=== PATIENT | male | born 2000 | race Caucasian/White ===

== ENCOUNTER 2019-01-30 05:12 | Observation (INO) ==
[2019-01-30] MEDS ORDERED: 0.9 % Sodium Chloride 1,000 ML IVC ONE ×2 (05:42→07:18)
[2019-01-30 05:49] LABS: Mean Platelet Volume 10.4 fL (9.4-12.4)
[2019-01-30 05:50] LABS: Hematocrit 43.8 % (37.5-50.1); Hemoglobin 15.8 g/dL (12.9-16.9); Mean Corpuscular HGB Conc 36.1 g/dL (31.6-35.5); Mean Corpuscular Hemoglobin 30.6 pg (28.0-33.3); Mean Corpuscular Volume 84.7 fL (83.0-100.0); Platelet Count 349 K/mcL (140-400); Red Blood Count 5.17 M/mcL (4.19-5.50); Red Cell Distribution Width 11.9 % (11.5-14.5)
[2019-01-30] MEDS ORDERED: Ondansetron 4 MG/2 ML VIAL IVP ONE (05:59)
[2019-01-30] MEDS ORDERED: Ondansetron 4 MG/2 ML VIAL ONE (06:01)
[2019-01-30 06:05] LABS: Alanine Aminotransferase 26 Units/L (7-52); Albumin 5.3 g/dL (3.5-5.7); Albumin/Globulin Ratio 2.1 (1.1-2.2); Alkaline Phosphatase 117 Units/L (34-104); Aspartate Amino Transferase 28 Units/L (13-39); BUN/Creatinine Ratio 8 (6-26); Bilirubin,Total 0.3 mg/dL (0.3-1.0); Blood Urea Nitrogen 8 mg/dL (6-20); Calcium 9.9 mg/dL (8.6-10.3); Carbon Dioxide 18 mEq/L (23-29); Chloride 106 mEq/L (98-107); Globulin 2.5 g/dL (2.4-3.5); Glucose 266 mg/dL (70-105); Magnesium 2.3 mg/dL (1.6-2.6); Osmolality,Calculated 292 (280-300); Potassium 3.5 mEq/L (3.5-5.1); Sodium 137 mEq/L (136-145); Total Protein 7.8 g/dL (6.4-8.9); eGFR For Non-African Americans > 60 (> 60)
[2019-01-30 06:15] LABS: Lymphocytes # 4.3 K/mcL (0.6-4.6); Monocytes # 1.1 K/mcL (0.0-1.3); Neutrophils # 30.2 K/mcL (1.6-8.9); Platelet Estimate Normal (Normal)
--- NOTE | 2019-01-30 06:16 | Emergency Department Note ---
Disposition Clinical Impression: Status epilepticus Disposition: Still a Patient Condition: Fair Referrals: NONE,PCP [Primary Care Provider] - Forms: ED Satisfaction Letter Seizure HPI - General Chief Complaint: ED Seizure Stated Complaint: seizures Time Seen by Provider: 01/30/19 05:15 Source: patient Mode of arrival: ambulatory Limitations: altered mental status Nursing Notes Reviewed: Yes Vital Signs Reviewed: Yes - History of Present Illness HPI Narrative: 18 yo male with PMHx of seizures without a known cause presents to the ED with family after several seizures tonight. Mother states he had 4 seizures between 230 and 430 this morning without complete return to consciousness. She describes these episodes as total body shaking with stiffening of the limbs in between the shaking episodes. He also had an episode of urinary incontinence as well as one episode of vomiting. She was worried as he did not fully wake up after the seizures and eventually called 911. The patient has not had any seizure like activity since 0430 this morning. He has had 3 previous episodes of seizures that had all self resolved. The patient has not had a seizure in over a year and does not take daily medication. He did not have any abortive medication today to stop the seizures. He is currently post-ictal. Pt is able to answer some questions and states he did not take any drugs tonight and has no history of drug use. He has not recently been ill and is not under excess stress at this time. - Related Data Allergies Allergy/AdvReac Type Severity Reaction Status Date / Time No Known Allergies Allergy Verified 01/30/19 05:13 All systems ED: reviewed and negative except as stated. Review of Systems: As Per HPI Constitutional: Denies: fever, chills, weakness Cardiovascular: Denies: chest pain, palpitations, dyspnea on exertion Respiratory: Denies: cough, dyspnea, wheezes Gastrointestinal: Denies: abdominal pain, nausea, vomiting Musculoskeletal: Denies: back pain, neck pain Integumentary: Denies: rash Neurological: Reports: other (seizure). Denies: headache Endocrine: Denies: fatigue Past Medical History - Past Medical History Attestation: Yes The following information was validated with the patient. Source: patient, obtained from family Medical history: Reports: seizures Psychiatric history: Reports: no psych history - Social History Smoking Status: Current every day smoker Smokeless Tobacco Status: No Alcohol use: Reports: none Drug use: Reports: none Physical Exam - General Limitations: altered mental status General appearance: alert, in no apparent distress - Head Head exam: atraumatic, normocephalic - Eye Eye exam: Present: normal appearance, PERRL, EOMI - Chest Chest inspection: Present: normal inspection. Absent: tenderness - Respiratory Respiratory exam: Present: normal lung sounds bilaterally - Cardiovascular Cardiovascular exam: Present: regular rate, normal rhythm - Abdominal Exam Abdominal exam: Present: soft, Non-Tender. Absent: distention, guarding, rebound, rigidity - Extremities Exam Extremities exam: Present: normal inspection. Absent: tenderness, pedal edema - Neurological Exam Neurological exam: Present: alert, other (pt currently somnolent but easily aroused and able to answer questions. Moves all 4 extremities without difficulty. Speech is slightly slurred.). Absent: motor sensory deficit - Psychiatric Psychiatric exam: Present: flat affect - Skin Skin exam: Present: warm, dry, intact Course Vital Signs Temperature 97.8 F 01/30/19 05:17 Pulse Rate 102 01/30/19 05:17 Respiratory Rate 18 01/30/19 05:17 Blood Pressure 140/114 01/30/19 05:17 O2 Sat by Pulse Oximetry 100 01/30/19 05:17 Temperature 97.8 F 01/30/19 05:17 Pulse Rate 79 01/30/19 06:12 Respiratory Rate 18 01/30/19 06:12 Blood Pressure 120/87 01/30/19 06:12 O2 Sat by Pulse Oximetry 97 01/30/19 06:12 Oxygen Delivery Oxygen Delivery Room Air Seizure - MDM Narrative Medical decision making narrative: Patient presents after multiple [id number] seizures concerning for status epilepticus. We will give him medication at this time to prevent future seizures and obtain an EKG, head CT, urinalysis, lab work to look for electrolyte abnormalities and infection. - Medical Records Medical records reviewed: Yes I reviewed the patient's medical records. - Lab Data Lab results reviewed: Yes I reviewed the patient's lab results. Result diagrams: 01/30/19 05:37 01/30/19 05:37 Lab Results 01/30/19 01/30/19 01/30/19 Range/Units 05:37 05:37 06:08 WBC 35.9 H* (4.3-11.1) K/mcL RBC 5.17 (4.19-5.50) M/mcL Hgb 15.8 (12.9-16.9) g/dL Hct 43.8 (37.5-50.1) % MCV 84.7 (83.0-100.0) fL MCH 30.6 (28.0-33.3) pg MCHC 36.1 H (31.6-35.5) g/dL RDW 11.9 (11.5-14.5) % Plt Count 349 (140-400) K/mcL MPV 10.4 (9.4-12.4) fL Seg Neutrophils % 74.0 % Band Neutrophils % 10.0 H (0-4) % Lymphocytes % 12.0 % Monocytes % 3.0 % Metamyelocytes % 1.0 H (0) % Neutrophils # 30.2 H (1.6-8.9) K/mcL Lymphocytes # 4.3 (0.6-4.6) K/mcL Monocytes # 1.1 (0.0-1.3) K/mcL Platelet Estimate Normal (Normal) Sodium 137 (136-145) mEq/L Potassium 3.5 (3.5-5.1) mEq/L Chloride 106 (98-107) mEq/L Carbon Dioxide 18 L (23-29) mEq/L BUN 8 (6-20) mg/dL Creatinine 1.01 (0.70-1.30) mg/dL Est GFR ( Amer) > 60 (> 60) Est GFR (Non-Af Amer) > 60 (> 60) BUN/Creatinine Ratio 8 (6-26) Glucose 266 H (70-105) mg/dL Calculated Osmolality 292 (280-300) Lactic Acid 2.7 H (0.5-2.2) mmol/L Calcium 9.9 (8.6-10.3) mg/dL Magnesium 2.3 (1.6-2.6) mg/dL Total Bilirubin 0.3 (0.3-1.0) mg/dL AST 28 (13-39) Units/L ALT 26 (7-52) Units/L Alkaline Phosphatase 117 H (34-104) Units/L Troponin I (< 0.04) ng/mL Serum Total Protein 7.8 (6.4-8.9) g/dL Albumin 5.3 (3.5-5.7) g/dL Globulin 2.5 (2.4-3.5) g/dL Albumin/Globulin Ratio 2.1 (1.1-2.2) Urine Color (Yellow) Urine Clarity (Clear) Urine pH (5.0-8.0) pH Units Ur Specific [place] (1.010-1.025) Urine Protein (Neg-Trace) mg/dL Urine Glucose (UA) (Normal) mg/dL Urine Ketones (Negative) mg/dL Urine Blood (Negative) Urine Nitrite (Negative) Urine Bilirubin (Negative) Urine Urobilinogen (Normal) mg/dL Ur Leukocyte Esterase (Negative) Urine Microscopic RBC (0-3) per hpf Urine Microscopic WBC (0-3) per hpf Ur Squamous Epith Cells (None-Few) per lpf Urine Bacteria (None-Few) per hpf Hyaline Casts (None-Few) per lpf Urine Opiates Screen (Ehkujd=810) ng/mL Ur Barbiturates Screen (Cfuhba=097) ng/mL Ur Phencyclidine Scrn (Cutoff=25) ng/mL Ur Amphetamines Screen (Tibfzi=6776) ng/mL U Benzodiazepines Scrn (Tcgkop=934) ng/mL Urine Cocaine Screen (Cutoff= 300) ng/mL U Marijuana (THC) Screen (Cutoff = 50) ng/mL Ur Drug Screen Interp 01/30/19 01/30/19 01/30/19 Range/Units 06:08 06:59 06:59 WBC (4.3-11.1) K/mcL RBC (4.19-5.50) M/mcL Hgb (12.9-16.9) g/dL Hct (37.5-50.1) % MCV (83.0-100.0) fL MCH (28.0-33.3) pg MCHC (31.6-35.5) g/dL RDW (11.5-14.5) % Plt Count (140-400) K/mcL MPV (9.4-12.4) fL Seg Neutrophils % % Band Neutrophils % (0-4) % Lymphocytes % % Monocytes % % Metamyelocytes % (0) % Neutrophils # (1.6-8.9) K/mcL Lymphocytes # (0.6-4.6) K/mcL Monocytes # (0.0-1.3) K/mcL Platelet Estimate (Normal) Sodium (136-145) mEq/L Potassium (3.5-5.1) mEq/L Chloride (98-107) mEq/L Carbon Dioxide (23-29) mEq/L BUN (6-20) mg/dL Creatinine (0.70-1.30) mg/dL Est GFR ( Amer) (> 60) Est GFR (Non-Af Amer) (> 60) BUN/Creatinine Ratio (6-26) Glucose (70-105) mg/dL Calculated Osmolality (280-300) Lactic Acid (0.5-2.2) mmol/L Calcium (8.6-10.3) mg/dL Magnesium (1.6-2.6) mg/dL Total Bilirubin (0.3-1.0) mg/dL AST (13-39) Units/L ALT (7-52) Units/L Alkaline Phosphatase (34-104) Units/L Troponin I < 0.03 (< 0.04) ng/mL Serum Total Protein (6.4-8.9) g/dL Albumin (3.5-5.7) g/dL Globulin (2.4-3.5) g/dL Albumin/Globulin Ratio (1.1-2.2) Urine Color Yellow (Yellow) Urine Clarity Turbid A (Clear) Urine pH 5.5 (5.0-8.0) pH Units Ur Specific [place] 1.028 H (1.010-1.025) Urine Protein 30 H (Neg-Trace) mg/dL Urine Glucose (UA) >=1000 H (Normal) mg/dL Urine Ketones Negative (Negative) mg/dL Urine Blood Trace H (Negative) Urine Nitrite Negative (Negative) Urine Bilirubin Negative (Negative) Urine Urobilinogen Normal (Normal) mg/dL Ur Leukocyte Esterase Negative (Negative) Urine Microscopic RBC 0-3 (0-3) per hpf Urine Microscopic WBC 0-3 (0-3) per hpf Ur Squamous Epith Cells Few (None-Few) per lpf Urine Bacteria None Seen (None-Few) per hpf Hyaline Casts None Seen (None-Few) per lpf Urine Opiates Screen Negative (Vrohqg=125) ng/mL Ur Barbiturates Screen Negative (Hksnkz=097) ng/mL Ur Phencyclidine Scrn Negative (Cutoff=25) ng/mL Ur Amphetamines Screen Negative (Ltpkaa=6902) ng/mL U Benzodiazepines Scrn Negative (Wgxbth=606) ng/mL Urine Cocaine Screen Negative (Cutoff= 300) ng/mL U Marijuana (THC) Screen Positive H (Cutoff = 50) ng/mL Ur Drug Screen Interp See Below - EKG Data EKG attestation: Yes I reviewed and interpreted this EKG. EKG results narrative: EKG obtained at 5:56 on 01/30/2019 Heart rate 93 bpm, SC interval 154, QRS duration 145, QT 367, QTC 457 Sinus rhythm with large QRS complexes in the lateral leads likely secondary to the patient being a young athletic male not left ventricular hypertrophy. There are no ST segment elevations or depressions. No old EKG for comparison time. Attestation Statement - Attestation Attestation: I, Billy Salazar, examined this patient and my medical decision-making was reviewed with the CHRISTIAN SCIENCE PRACTITIONER/PA/Advanced Practice Nurse/Resident Physician. I agree with the documented findings, disposition and treatment plan as described except to the extent set forth below. 18-year-old male presents emergency department for evaluation of seizure. Fam lisa member states they heard him shaking on the couch in another room, they entered to find him convulsing. They stated it lasted about 5-6 minutes before stopping. They report incontinent of urine at that time and a postictal mental status. Patient continues to be postictal in the emergency department. They state that he had 3 more seizures at home of similar length without returning to his mental baseline. He has a history of similar seizure events of the past and has been worked up by neurology many years ago but not recently. He is not taking antiepileptic medications. Patient is afebrile in the emergency department. Denies recent trauma. No new medications. Denies IV drug use or other illicit drug use. Denies EtOH use. Patient is moving all extremities in emergency department. No focal deficits or rashes noted on exam. Laboratory results and imaging is pending at this time. Patient care will be transferred to the day physician pending reevaluation, imaging, disposition.
--- NOTE | 2019-01-30 07:02 | Emergency Department Note ---
START Narrative - START START: Agree with initial H&P per Dr. Salazar: The patient is currently being monitored in the emergency department. The patient's parents are here with him, they report the patient had 4 separate seizure-like episodes and describe tonic-clonic activity. He was in bed at the time and no acute injury is reported. The patient has some slight back pain. He was in his usual good state of health prior to the event. The patient has a history of seizures remotely but is currently not treated. Based on the patient's multiple seizures, no current medication regimen,significant leukocytosis, I thought it would be appropriate to admit the patient hospital. Gen.: Age-appropriate male lying supine nontoxic in appearance alert oriented to questions properly. HEENT normocephalic atraumatic neck supple, no evidence of nuchal rigidity or meningismus, lungs clear to auscultation bilaterally without wheezes rhonchi rales or crackles, abdomen soft nontender nondistended no rebound rigidity or guarding, cardiac S1 S2 audible, extremities warm and well perfused without cyanosis or edema. Neurologic muscle strength and sensation are generally intact cranial nerves II through XII grossly intact. Exposed skin warm and dry without petechia or purpura. No ivette trauma appreciated. Ativan was given IV as well as IV fluid. Chest x-ray lactic acid and blood cultures were ordered. The patient is currently stable. Hyperglycemia noted. Marked leukocytosis is also noted. Blood cultures were sent. Urinalysis shows no infectious change, clinically I do not suspect meningismus, the patient denies headache in the ED, he displays no nuchal rigidity. Chest x-ray negative. Skin without obvious source for infection. Based on multiple abnormalities recurrent seizures I thought it would be appropriate to admit the patient to the hospital. The patient and family are agreeable. I discussed the case with Dr. Mckeon, neurologist, he recommends Keppra, EEG, and MRI. On review, we do not feel the patient would necessarily require an LP prior to admission based on no history of headache no clinical nuchal rigidity or fever. I discussed case with the hospitalist on-call who has accepted the patient to their care. Impression: Recurrent seizures Hyperglycemia Marijuana abuse Lactic acidosis Leukocytosis
[2019-01-30 07:09] LABS: Bilirubin,Urine Negative (Negative); Blood,Urine Trace (Negative); Clarity,Urine Turbid (Clear); Color,Urine Yellow (Yellow); Glucose,Urine (UA) >=1000 mg/dL (Normal); Ketones,Urine Negative (Negative); Leukocyte Esterase,Urine Negative (Negative); Nitrite,Urine Negative (Negative); PH,Urine 5.5 pH Units (5.0-8.0); Protein,Urine 30 mg/dL (Neg-Trace); Specific Gravity,Urine 1.028 (1.010-1.025); Urobilinogen,Urine Normal (Normal)
[2019-01-30 07:11] LABS: Bacteria,Urine None Seen per hpf (None-Few); Hyaline Casts,Urine None Seen per lpf (None-Few); RBC,Urine 0-3 per hpf (0-3); Squamous Epithelial Cell,Urine Few per lpf (None-Few); WBC,Urine 0-3 per hpf (0-3)
[2019-01-30 07:17] LABS: Amphetamine Screen,Urine Negative ng/mL (Cutoff=1000); Barbiturate Screen,Urine Negative ng/mL (Cutoff=200)
[2019-01-30] MEDS ORDERED: *HR* LORazepam 2 MG/ML VIAL IVP ONE ×2 (07:17→09:55)
[2019-01-30 07:18] LABS: Benzodiazepines Screen,Urine Negative ng/mL (Cutoff=300); Cannabinoid Screen,Urine Positive ng/mL (Cutoff = 50); Cocaine Screen,Urine Negative ng/mL (Cutoff= 300); Opiate Screen,Urine Negative ng/mL (Cutoff=300); Phencyclidine Screen,Urine Negative ng/mL (Cutoff=25)
[2019-01-30] MEDS ORDERED: levETIRAcetam 1,000 MG in 0.9 % Sodium Chloride 100 ML IVPB ONE (09:07)
[2019-01-30] MEDS ORDERED: Naloxone 0.4 MG/ML INJ IVP PRN (09:07)
--- NOTE | 2019-01-30 09:15 | Internal Med History&Physical ---
<Mina Pool - Last Filed: 01/30/19 09:12> Date of Encounter: 01/30/19 Time of Encounter: 09:12 Internal Medicine - H&P: HPI Chief complaint: Seizures Admitted From: Emergency Dept Plans for Post Hospital Care: Home History of present illness: Mr. Panchal is a 18 year old male with past medical history seizures presents with 4 episodes of seizures starting while patient was sleeping last night. Patient was found by his sister having tonic-clonic seizures. Patient had urinary incontinence and tongue biting. Family reports patient has had seizures in the past but usually recurs Rocephin and has not had any for the past 2-3 years. He does not see a neurologist and is not on antiepileptic. Patient is alert to self, place, situation. He is postictal. Patient has a step sister who has history of epilepsy. He denies any illicit substance abuse presented to marijuana. He is a tobacco smoker and occasional alcohol user. Patient reports he takes ibuprofen but rarely. He has not started any new medications recently. He denies travel or sick contacts. He denies fevers, chills. Family reports patient had nausea and vomiting after his seizure episodes. Past Med Surg Social Fam HX - Past Medical History Medical history: seizures Psychiatric history: no psych history - Past Surgical History Additional surgical history: No surgical history. - Social History Smoking Status: Current every day smoker Smokeless Tobacco Status: No Alcohol use: none Drug use: marijuana - Family History Sister Living Status: Still Living Hx Family Neurologic Disorders: Yes (Epilepsy) - Additional Family History Additional family history: Family history of diabetes in the father's side. Internal Medicine - H&P: Meds Allergy/AdvReac Type Severity Reaction Status Date / Time No Known Allergies Allergy Verified 01/30/19 05:13 All Systems PM: A 10-system review of systems was performed and is negative for pertinent findings except as documented above in the HPI. Review of systems: Constitutional: Denies fever, chills HEENT: Denies headache, trauma, blurry vision, eye discharge, ear pain, ear discharge neck pain, sore throat, rhinorrhea Heart: Denies chest pain palpitations, LE edema Lungs: Denies shortness of breath cough Abdomen: Denies abdominal pain diarrhea MSK: Denies back pain, falls, joint pain Kidney: Denies dysuria, hematuria Skin: Denies rash, ulcers Neuro: Denies numbness and tingling Psych: denies axniety, depression - Constitutional Vitals: Temp Pulse Resp BP Pulse Ox 97.8 F 66 18 122/81 98 01/30/19 05:17 01/30/19 07:45 01/30/19 07:45 01/30/19 07:45 01/30/19 07:45 Exam: General: Groggy HEENT: Head atraumatic, normocephalic, EOMI, PERRL, absent ear discharge or trauma, Moist Mucous Membranes, uvula midline. Right tongue laceration Neck: nontender to palpation, absent lymphadenopathy, Cardiovascualr: Regular rate and rhythm with no murmur, absent gallops or rubs, absent pedal edema, radial pulses 2 out of 4 Lungs: Clear to auscultation bilaterally, not in respiratory distress Abdomen: Soft nontender, nondistended positive bowel sounds, absent hepatomegaly Skin: warm and dry, absent rash, absent open wounds and nodules MSK: absent clubbing, cyanosis, joints without swelling Neuro: Cranial nerves II through XII intact, UE and LE sensation equal bilaterally, UE and LEstrength 5/5, alert oriented to time, place, situation, negative per to secure Kernig sign Psych: good insight and judgment Internal Med - H&P Results - Labs CBC & Chem 7: 01/30/19 05:37 01/30/19 05:37 Labs: Short CBC 01/30/19 Range/Units 05:37 WBC 35.9 H* (4.3-11.1) K/mcL Hgb 15.8 (12.9-16.9) g/dL Hct 43.8 (37.5-50.1) % Plt Count 349 (140-400) K/mcL Neutrophils # 30.2 H (1.6-8.9) K/mcL BMP 01/30/19 05:37 Sodium 137 Potassium 3.5 Chloride 106 Carbon Dioxide 18 L BUN 8 Creatinine 1.01 Glucose 266 H Calcium 9.9 Cardiac Enzymes 01/30/19 Range/Units 06:08 Troponin I < 0.03 (< 0.04) ng/mL Liver Function 01/30/19 Range/Units 05:37 Total Bilirubin 0.3 (0.3-1.0) mg/dL AST 28 (13-39) Units/L ALT 26 (7-52) Units/L Alkaline Phosphatase 117 H (34-104) Units/L Albumin 5.3 (3.5-5.7) g/dL Urine 01/30/19 Range/Units 06:59 Urine Color Yellow (Yellow) Urine Clarity Turbid A (Clear) Urine pH 5.5 (5.0-8.0) pH Units Ur Specific [place] 1.028 H (1.010-1.025) Urine Protein 30 H (Neg-Trace) mg/dL Urine Glucose (UA) >=1000 H (Normal) mg/dL - Impressions ITS Impressions Head CT 01/30/19 05:42 IMPRESSION: No acute intracranial abnormality. D/ / Arcenio Snyder / Arcenio Snyder Interpreting Provider: Arcenio Snyder Chest X-Ray 01/30/19 07:03 IMPRESSION: No acute cardiopulmonary abnormality. D/ / Bobby Little MD / Bobby Little MD Interpreting Provider: Bobby Little MD - Assessment and Plan (1) Status epilepticus Current Visit: Yes Status: Acute Assessment and plan: Patient presented with 4 episodes of seizures Patient has a history of seizures but is not on antiepileptic and his last seizure episode was 2-[address] was negative. Patient was given lorazepam in the emergency department. Magnesium within normal limits. Currently he is alert and oriented 3 Neurology has been consulted and we will load patient with Keppra and started on Keppra 500 mg twice a day. Seizure precautions, assess neurological status every 4 hours Nothing by mouth. (2) Leukocytosis Current Visit: Yes Status: Acute Assessment and plan: Patient has a leukocytosis of 35.9 with a bandemia of 10% He is afebrile. He meets SIRS criteria with leukocytosis and tachycardia however there is no clear source of infection Furthermore patient has a lactic acid of 2.6. Brudzinski and Kernig sign were negative There is suspicion for meningitis and we have consulted neurology for lumbar puncture. We will obtain MR of the head. Qualifiers: Leukocytosis type: bandemia Qualified Code(s): D72.825 - Bandemia (3) Hyperglycemia Current Visit: Yes Status: Acute Assessment and plan: Patient's glucose was 266 admission He also has glucose in the urine We will check an A1c (4) Marijuana use Current Visit: Yes Status: Acute (5) DVT prophylaxis Current Visit: Yes Status: Acute Assessment and plan: heparin SQ - Time Spent With Patient Total time spent is greater than 50% in coordination of care (as documented) at patient's floor/unit and/or counseling patient: <Jolanta Zepeda - Last Filed: 01/30/19 10:43> Date of Encounter: 01/30/19 Internal Medicine - H&P: HPI History of present illness: Mr. Panchal is a 18 year old male All Systems PM: A 10-system review of systems was performed and is negative for pertinent findings except as documented above in the HPI. - Constitutional Vitals: Temp Pulse Resp BP Pulse Ox 97.8 F 66 18 122/81 98 01/30/19 05:17 01/30/19 07:45 01/30/19 07:45 01/30/19 07:45 01/30/19 07:45 Internal Med - H&P Results - Labs CBC & Chem 7: 01/30/19 05:37 01/30/19 05:37 Labs: Short CBC 01/30/19 Range/Units 05:37 WBC 35.9 H* (4.3-11.1) K/mcL Hgb 15.8 (12.9-16.9) g/dL Hct 43.8 (37.5-50.1) % Plt Count 349 (140-400) K/mcL Neutrophils # 30.2 H (1.6-8.9) K/mcL BMP 01/30/19 05:37 Sodium 137 Potassium 3.5 Chloride 106 Carbon Dioxide 18 L BUN 8 Creatinine 1.01 Glucose 266 H Calcium 9.9 Cardiac Enzymes 01/30/19 Range/Units 06:08 Troponin I < 0.03 (< 0.04) ng/mL Liver Function 01/30/19 Range/Units 05:37 Total Bilirubin 0.3 (0.3-1.0) mg/dL AST 28 (13-39) Units/L ALT 26 (7-52) Units/L Alkaline Phosphatase 117 H (34-104) Units/L Albumin 5.3 (3.5-5.7) g/dL Urine 01/30/19 Range/Units 06:59 Urine Color Yellow (Yellow) Urine Clarity Turbid A (Clear) Urine pH 5.5 (5.0-8.0) pH Units Ur Specific [place] 1.028 H (1.010-1.025) Urine Protein 30 H (Neg-Trace) mg/dL Urine Glucose (UA) >=1000 H (Normal) mg/dL - Impressions ITS Impressions Head CT 01/30/19 05:42 IMPRESSION: No acute intracranial abnormality. D/ / Arcenio Snyder / Arcenio Snyder Interpreting Provider: Arcenio Snyder Chest X-Ray 01/30/19 07:03 IMPRESSION: No acute cardiopulmonary abnormality. D/ / Bobby Little MD / Bobby Little MD Interpreting Provider: Bobby Little MD - Time Spent With Patient Total time spent is greater than 50% in coordination of care (as documented) at patient's floor/unit and/or counseling patient: - Attending Attestation I performed a history and physical examination of the patient and discussed his management with the resident. I reviewed the residents note and agree with the documented findings and plan of care
--- NOTE | 2019-01-30 10:12 | Neurology - Consult Note ---
Date of Encounter: 01/30/19 Time of Encounter: 09:59 Assessment and Plan (1) Seizure Current Visit: Yes Status: Acute 18-year-old male with past medical history of seizures who presented after having 4 two-hour long seizure in which family found him on couch moving his arms and foaming at the mouth. He lost control of his bladder and urinated himself. He bit the tip of his tongue. 3 years ago he had 2 five-minute seizures for which she was on Dilantin for 30 days then taken off and has been seizure free since. Etiology of previous seizure were undetermined by brain MRI and EEG. Denies travel, illness, trauma, medication change, drug use. -Etiology for seizure is unclear at this time. Consider possibly secondary to infection, psychogenic, family history, epilepsy. Unlikely to be meningitis as he is afebrile and no neck stiffness or confusion. Ruled out intracranial neoplasm. -Half sister had seizures as a child and was taken off antiseizure medication in her teens. -Patient occasionally will have posterior headaches for which she takes ibuprofen. -WBC 35.9, lactic acid 2.7, CK<5. Urinalysis with >1000 glucose. Chest x-ray were unremarkable -Toxicology screen positive for THC -Head CT negative for acute intracranial abnormality -Brain MRI showed no acute intracranial abnormality Recommendations: Since the patient has had seizures in the past and now had 4 that lasted 2hrs will treat with Keppra 500mg BID that lasted 2 hrs. He may have undiagnosed epilepsy or this may also be psychogenic pseudoseizure. Will await EEG. Would recommend workup for infectious etiology. Will repeat CBC at 1pm to see if WBC decreases. (2) Leukocytosis Current Visit: Yes Status: Acute Leukocytosis with WBC 35. Patient does not appear toxic. He is not confused or have neck stifness, and he is afebrile. Do not believe he has meningitis. Consider other infectious source and likely contributed by seizure. -will repeat CBC at 1pm Qualifiers: Leukocytosis type: bandemia Qualified Code(s): D72.825 - Bandemia (3) Marijuana use Current Visit: Yes Status: Acute Patient denied drug use however his toxicology screen was positive for marijuan a. History of Present Illness Chief complaint: Seizures HPI: Mr. Panchal is a 18 year old male with past medical history of seizure who presented to [facility] on 01/30/2019 due to seizures. Neurology was consulted on recommendations for the seizures. Upon my examination of the patient he is alert and oriented times 3 and his father's at the bedside. The patient is drowsy but awake. He reports that he does not remember the seizures. His sister had found him having tonic clonic seizures on the couch. The family report that the patient was foaming at the mouth and that the 4 seizures lasted for 2 hours. He had shaking of his arms but not his hips or legs. He lost control his bladder and urinated himself any bit the tip of his tongue. He did not come out of the seizure until EMS arrived and were trying to talk to him, at that time family stated that his seizure abruptly stopped and he looked wide-eyed at EMS. He was postictal and vomited. About 3 years ago the patient had 2 seizures that lasted 5 minutes and was on Dilantin for one month but was not continued on it as his neurologist that he no longer needed it and he has been seizure free since. The etiology of the past seizure is unknown and MRI and EEG at that time were unremarkable. He denied drug use, alcohol use. He is a current smoker of 10 cigarettes a day for the past 5 years. He denied recent travel, sickness, trauma/fall, change in medication. His half sister had seizures as a child and was on medication for about 10 years, however she was taken off the medication in her teens and not had a seizure since. He has occasional headaches posteriorly for which he takes [id number] medication and they go way. He denied fever, chills, neck stiffness, change in vision, chest pain, shortness of breath, cough, abdominal pain, diarrhea, dysuria. In the emergency department, vitals were temperature 97.8, HR 102, BP 120/87. WBC 35.9, lactic acid 2.7, CK<5. Urinalysis with >1000 glucose. Toxicology screen was significant for THC present. Head CT and chest x-ray were unremarkable. The patient was given Ativan and started on Keppra. MRI brain and EEG are ordered. Past Med Surg Social Fam HX - Past Medical History Attestation: Yes The following information was validated with the patient. Source: patient Medical history: seizures Psychiatric history: no psych history - Past Surgical History Surgical History: no surgical history Additional surgical history: No surgical history. - Social History Smoking Status: Current every day smoker Smokeless Tobacco Status: No Alcohol use: none Drug use: marijuana - Family History Sister Living Status: Still Living Hx Family Neurologic Disorders: Yes (Epilepsy) Medications and Allergies Allergy/AdvReac Type Severity Reaction Status Date / Time No Known Allergies Allergy Verified 01/30/19 05:13 All Systems: The remainder of the systems were reviewed and are negative - Constitutional Constitutional ROS IM: headache(s), no fever(s), no frequent falls, no weakness - Nose, Mouth, Throat Nose, mouth and throat: headache(s), no disequilibrium, no neck pain, no vertigo - Cardiovascular Cardiovascular ROS IM: no chest pain, no edema, no palpitations - Respiratory Respiratory IM: no cough, no dyspnea, no wheezing - Gastrointestinal Gastrointestinal: nausea, vomiting, no abdominal pain, no diarrhea - Genitourinary Genitourinary ROS: urinary incontinence, no dysuria, no pelvic pain, no urinary hesitancy - Musculoskeletal Musculoskeletal ROS IM: no muscle cramps, no neck pain - Integumentary Integumentary IM: no new lesions, no rash - Neurological Neurological ROS: confusion, convulsions, headache(s), no disequilibrium, no dizziness, no frequent falls, no loss of vision, no vertigo, no weakness Physical Examination - Vital Signs Vital Signs: Initial Vital Signs Temp Pulse Resp BP Pulse Ox 97.8 F 102 18 140/114 100 01/30/19 05:17 01/30/19 05:17 01/30/19 05:17 01/30/19 05:17 01/30/19 05:17 - Constitutional General appearance: comfortable - Neurologic Sensorimotor examination: intact Detailed motor examination: grossly full strength in all extremities Motor examination - right side: 5/5: deltoids, biceps, triceps, health education director, hip flexors, quadriceps, toe extension (EHL), plantarflexion Motor examination - left side: 5/5: deltoids, biceps, triceps, hip flexors, gri p, quadriceps, toe extension (EHL), plantarflexion Detailed sensory examination: intact Reflexes: Biceps: 2+, Triceps: 2+, Brachioradialis: 2+, Patella: 2+ Mental Status Examination: awake, alert, oriented to person, oriented to place, oriented to time, follows commands appropriately, answers questions appropriately, drowsy, makes eye contact Cranial nerve examination: PERRL, visual nassar intact, sensory to face intact, no facial asymmetry is present, no dysarthria Cerebellar examination: no dysmetria, performs finger to nose and heel to thornton symmetrically without ataxia, no difficulty with rapid alternating movements Results - Laboratory Findings CBC and BMP: 01/30/19 05:37 01/30/19 05:37 Abnormal lab findings: Abnormal lab results WBC 35.9 K/mcL (4.3-11.1) H* 01/30/19 05:37 MCHC 36.1 g/dL (31.6-35.5) H 01/30/19 05:37 Band Neutrophils % 10.0 % (0-4) H 01/30/19 05:37 Metamyelocytes % 1.0 % (0) H 01/30/19 05:37 Neutrophils # 30.2 K/mcL (1.6-8.9) H 01/30/19 05:37 Carbon Dioxide 18 mEq/L (23-29) L 01/30/19 05:37 Glucose 266 mg/dL (70-105) H 01/30/19 05:37 Lactic Acid 2.6 mmol/L (0.5-2.2) H 01/30/19 07:28 Alkaline Phosphatase 117 Units/L (34-104) H 01/30/19 05:37 Urine Clarity Turbid (Clear) A 01/30/19 06:59 Ur Specific [place] 1.028 (1.010-1.025) H 01/30/19 06:59 Urine Protein 30 mg/dL (Neg-Trace) H 01/30/19 06:59 Urine Glucose (UA) >=1000 mg/dL (Normal) H 01/30/19 06:59 Urine Blood Trace (Negative) H 01/30/19 06:59 U Marijuana (THC) Screen Positive ng/mL (Cutoff = 50) H 01/30/19 06:59 Consult Discharge Plan - Plan
[2019-01-30] MEDS: *HR* Heparin 5,000 UNIT/ML VIAL SQ SCH ×3 (12:37→22:37)
--- NOTE | 2019-01-30 14:38 | EEG/EMG/Oth Biometrics Report ---
EEG Procedure Report Date of procedure: 01/30/19 EEG Procedure: Routine EEG Procedure Note: This EEG was acquired with standard international 10-20 system with EKG recording. The background EEG activity was characterized by the presence of posterior dominant alpha rhythm with the best frequency up to 13 Hz. The background activity was reactive to eye openings. Sleep stages were characterized by the presence of background fragmentation, vertex waves, K complexes, and sleep spindles. There are no electrographic seizures identified during this tracing. There are no epileptiform discharges and focal slowing noted during this recording. Photic stimulation produced no abnormalities. Hyperventilation procedure was not performed. EKG tracing showed normal sinus rhythm. Impression: This is essentially a normal awake and asleep EEG. Clinical Correlation: Normal EEGs, however, do not exclude epilepsy. Clinical correlation advised.
[2019-01-30 14:48] LABS: Basophils % 0.1 %; Hematocrit 36.8 % (37.5-50.1); Immature Granulocytes % 0.5 % (0-4); Lymphocytes # 1.1 K/mcL (0.6-4.6); Lymphocytes % 5.3 %; Mean Corpuscular Hemoglobin 31.1 pg (28.0-33.3); Mean Corpuscular Volume 84.2 fL (83.0-100.0); Mean Platelet Volume 10.4 fL (9.4-12.4); Monocytes # 1.4 K/mcL (0.0-1.3); Monocytes % 6.2 %; Platelet Count 264 K/mcL (140-400); Red Blood Count 4.37 M/mcL (4.19-5.50); Red Cell Distribution Width 11.9 % (11.5-14.5); Segmented Neutrophils % 87.9 %
[2019-01-30 14:55] LABS: Hemoglobin 13.6 g/dL (12.9-16.9)
[2019-01-30] MEDS ORDERED: Acetaminophen 325 MG TABLET PO PRN (19:41)
[2019-01-30] MEDS ORDERED: Ondansetron 4 MG/2 ML VIAL IVP PRN (19:42)
[2019-01-31 05:38] LABS: Basophils % 0.1 %; Eosinophils % 0.2 %; Hematocrit 36.6 % (37.5-50.1); Immature Granulocytes % 0.3 % (0-4); Lymphocytes # 2.5 K/mcL (0.6-4.6); Lymphocytes % 17.4 %; Mean Corpuscular HGB Conc 35.5 g/dL (31.6-35.5); Mean Corpuscular Volume 87.1 fL (83.0-100.0); Mean Platelet Volume 10.9 fL (9.4-12.4); Monocytes # 1.3 K/mcL (0.0-1.3); Monocytes % 8.8 %; Neutrophils # 10.6 K/mcL (1.6-8.9); Platelet Count 229 K/mcL (140-400); Red Cell Distribution Width 11.9 % (11.5-14.5); Segmented Neutrophils % 73.2 %
[2019-01-31 05:58] LABS: BUN/Creatinine Ratio 7 (6-26); Blood Urea Nitrogen 8 mg/dL (6-20); Calcium 9.1 mg/dL (8.6-10.3); Carbon Dioxide 23 mEq/L (23-29); Chloride 106 mEq/L (98-107); Glucose 94 mg/dL (70-105); Osmolality,Calculated 284 (280-300); Potassium 3.5 mEq/L (3.5-5.1); Sodium 138 mEq/L (136-145); eGFR For Non-African Americans > 60 (> 60)
--- NOTE | 2019-01-31 06:34 | Electrocardiograph Report ---
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
[2019-01-31 06:40] LABS: Estimated Average Glucose 97 mg/dl
[2019-01-31] MEDS: *HR* Heparin 5,000 UNIT/ML VIAL SQ SCH (06:45)
[2019-01-31 07:20] VITALS: BP 130/75
--- NOTE | 2019-01-31 08:47 | Neurology Progress Note ---
Date of Encounter: 01/31/19 Time of Encounter: 08:44 Assessment and Plan (1) Seizure Current Visit: Yes Status: Acute 18-year-old male with past medical history of seizures who presented after having 4 two-hour long seizure in which family found him on couch moving his arms and foaming at the mouth. He lost control of his bladder and urinated himself. He bit the tip of his tongue. 3 years ago he had 2 five-minute seizures for which she was on Dilantin for 30 days then taken off and has been seizure free since. Etiology of previous seizure were undetermined by brain MRI and EEG. Denies travel, illness, trauma, medication change, drug use. -Etiology for seizure is most likely provoked by video games with flashing lights as some people may be more susceptible. He was also sleep deprived playing video games late in the evening. Unlikely to be meningitis as he is afebrile and no neck stiffness or confusion. Ruled out intracranial neoplasm. -Half sister had seizures as a child and was taken off antiseizure medication in her teens. -Patient occasionally will have posterior headaches for which she takes ibuprofen. -WBC 14.4 (35.9), lactic acid 2.7, CK<5. Urinalysis with >1000 glucose. Chest x-ray were unremarkable -Toxicology screen positive for THC -Head CT negative for acute intracranial abnormality -Brain MRI showed no acute intracranial abnormality -EEG normal Recommendations: The brain MRI and EEG were essentially normal. The patient most likely had seizures secondary to playing video games with the flashing lights as some people are more susceptible to this stimulation. And he was also sleep deprived staying up late in the evening. Discussed with patient that he should not play video games and he should be sure to have appropriate sleep. He is to continue Keppra 500 mg b.i.d. He will follow-up with Dr. Mckeon in the neurology office in 2 to 3 weeks. Will sign off at this time. (2) Marijuana use Current Visit: Yes Status: Acute Patient denied drug use however his toxicology screen was positive for marijuana. Subjective Principal diagnosis: Seizures Interval history: Patient seen and examined at bedside. He is alert and oriented times 3 in no acute distress. He reports no overnight events no seizures. He has no complaints at this time. He feels back to his normal self. He denies fever, chills, neck pain. Objective - Constitutional Vitals: Temp Pulse Resp BP Pulse Ox 98.5 F 79 18 130/75 97 01/31/19 07:19 01/31/19 07:19 01/31/19 07:19 01/31/19 07:19 01/31/19 07:19 General appearance: Present: A&O X 3, pleasant, no acute distress - Head Head exam: Present: atraumatic, normal inspection - Eye Eye exam: Present: normal appearance. Absent: conjunctival injection, nystagmus, scleral icterus - Extremities Exam Extremities exam: Present: normal inspection. Absent: pedal edema - Neurological Exam Sensorimotor examination: Present: intact Motor Examination: Present: grossly full strength in all extremities Motor examination - right side: 5/5: deltoids, biceps, triceps, principal network engineer, hip flexors, quadriceps, plantarflexion Motor examination - left side: 5/5: deltoids, biceps, triceps, hip flexors, principal network engineer, quadriceps, toe extension (EHL), plantarflexion Sensation intact: Present: intact Mental Status Examination: Present: awake, alert, oriented to person, oriented to place, oriented to time, follows commands appropriately, answers questions appropriately, makes eye contact Cranial nerve examination: Present: PERRL, visual nassar intact, sensory to face intact, no facial asymmetry is present, no dysarthria Results - Laboratory Findings CBC and BMP: 01/31/19 04:32 01/31/19 04:32 Abnormal lab findings: Abnormal lab results WBC 14.4 K/mcL (4.3-11.1) H 01/31/19 04:32 Hct 36.6 % (37.5-50.1) L 01/31/19 04:32 Band Neutrophils % 10.0 % (0-4) H 01/30/19 05:37 Metamyelocytes % 1.0 % (0) H 01/30/19 05:37 Neutrophils # 10.6 K/mcL (1.6-8.9) H 01/31/19 04:32 POC Glucose 105 mg/dL (70-99) H 01/31/19 04:17 Alkaline Phosphatase 117 Units/L (34-104) H 01/30/19 05:37 Urine Clarity Turbid (Clear) A 01/30/19 06:59 Ur Specific [place] 1.028 (1.010-1.025) H 01/30/19 06:59 Urine Protein 30 mg/dL (Neg-Trace) H 01/30/19 06:59 Urine Glucose (UA) >=1000 mg/dL (Normal) H 01/30/19 06:59 Urine Blood Trace (Negative) H 01/30/19 06:59 U Marijuana (THC) Screen Positive ng/mL (Cutoff = 50) H 01/30/19 06:59 Consult Discharge Plan - Plan Referrals: NONE,PCP [Primary Care Provider] -
--- NOTE | 2019-01-31 11:51 | Discharge Summary ---
- NOTES TO OUTPATIENT PROVIDER Notes to Outpatient Provider: f/u with PCP in one week. f/u with Neurology as scheduled before. Orders not resulted at time of discharge: Pending orders 01/30/19 07:20 Culture,Blood [BC] Stat Date of Encounter: 01/31/19 Time of Encounter: 11:46 - Discharge Diagnosis (1) Seizure Priority: Primary Status: Acute (2) Tobacco dependence Priority: Secondary Status: Acute (3) Marijuana use Priority: Secondary Status: Acute Hospital course: Mr. Panchal is a 18 year old male with past medical history seizure presented to ER with 4 episodes of seizures starting while patient was sleeping last night. Patient was found by his sister having tonic-clonic seizures. Patient had urinary incontinence and tongue biting. He does not see a neurologist and is not on antiepileptic. He denies any illicit substance abuse, however his UDS came back as positive for marijuana. He is a tobacco smoker and occasional alcohol user. He was admitted in the hospital and started him on IV Keppra. He does not have any more selective activity. Patient was evaluated by a neurologist, who did EEG which came back as normal. His current since activity most likely due to substance abuse and vivid video game playing. Educated the patient and counseled about substance abuse as well as video game playing. - Time Spent with Patient Total time spent providing and/or coordinating discharge services: - Discharge Medications Prescriptions: New LevETIRAcetam [Keppra] 500 mg PO BID #60 tablet Home Medications: LevETIRAcetam [Keppra] 500 mg PO BID #60 tablet 01/31/19 [Rx] Allergies/Adverse Reactions: Allergy/AdvReac Type Severity Reaction Status Date / Time No Known Allergies Allergy Verified 01/30/19 05:13 Date of admission: 01/30/19 11:07 Primary care physician: PCP NONE Consults: 01/30/19 09:07 Consult to Neurology [CONS] Routine Consulting Provider: [facility] Reason for Consult: seizures Call Completed: Yes 01/30/19 09:24 Consult to Neurology [CONS] Stat Consulting Provider: Neurology [facility] Reason for Consult: Recurrent seizures Time Notified: 09:24 Call Completed: Yes 01/30/19 12:16 Consult to Interpret Exam [CONS] Stat Consulting Provider: Ever Mckeon Consult to Interpret Exam: Interpret EEG - Constitutional Vitals: Temp Pulse Resp BP Pulse Ox 98.5 F 79 18 130/75 97 01/31/19 07:19 01/31/19 07:19 01/31/19 07:19 01/31/19 07:19 01/31/19 07:19 Exam: Gen: Alert, awake, Oriented to time,place and person Chest: Diminished breath sounds B/L, No wheezing, No crackles, No rales Heart: S1S2+ RRR No murmurs Abd: Soft, NT, BS +, No organomegaly Ext: No edema, pulses are palpable, No calf tenderness Neuro : No focal neuro deficits Skin: No rash. - Patient Status Disposition: Home, Self-Care Condition: Good Overall status at discharge: patient is back to baseline - Discharge Instructions Instructions: Levetiracetam (By mouth) Follow Up With: NONE,PCP [Primary Care Provider] - Ever Mckeon MD [Partnered Physician] - - Diet and Activity Activity: increase activity as tolerated Diet: low salt diet
== END 2019-01-31 12:20 | disposition home or self-care (01) ==
LOC: EMEROOARM 05:12 → 3BNU 05:12
PROVIDERS: ADMIT Internal Medicine Nephrology; ATTEND Internal Medicine Nephrology